=== PATIENT | male | born 1960 | race Caucasian/White ===

== ENCOUNTER 2016-11-05 11:19 | Emergency (ER) | payer OTHER ==
[2016-11-05] MEDS ORDERED: Sodium Chloride 0.9% 10 ML Syringe FLUSH PRN (11:26)
[2016-11-05] MEDS ORDERED: Nitroglycerin 2% Oint 1 GM UD Packet TOP ONE (11:34)
[2016-11-05] MEDS ORDERED: Aspirin 81 MG Tab.Chew PO ONE (11:34)
--- NOTE | 2016-11-05 12:38 | CR ---
Chest: Portable view of the chest was obtained. Comparison: Previous chest x-ray of 04/15/16. Heart size is normal. Tortuous thoracic aorta is seen. Lungs are clear. Bony structures are grossly intact. Impression: 1. Nothing acute is identified on portable chest x-ray. Diagnostic code #1
--- NOTE | 2016-11-05 13:04 | EDM.PDOC ---
ED HPI GENERAL MEDICAL PROBLEM - General Chief Complaint: Chest Pain Stated Complaint: CHEST PAIN Time Seen by Provider: 11/05/16 11:25 Source of Information: Reports: Patient, RN Notes Reviewed - History of Present Illness INITIAL COMMENTS - FREE TEXT/NARRATIVE: 55-year-old male comes in with left anterior chest tightness. It onset of this driving about an hour ago. And used to have some discomfort of the left anterior chest but not as severe as it was initially. The pain did initially radiate toward his left shoulder but is no longer doing that. He gan. had no pain to his neck or back. There's been no shortness of breath, nausea vomiting or diaphoresis. He doesn't have known history of hypertension and coronary artery disease. He has at least a couple of stents with the last stent placed about one year ago. Left Upper Chest Pain Score (Numeric/FACES): 5 - Related Data Allergies Allergy/AdvReac Type Severity Reaction Status Date / Time No Known Allergies Allergy Verified 11/05/16 11:28 Home Meds: Home Meds Omeprazole. 20 cap PO DAILY 01/08/14 [History] Aspirin [Low Dose Aspirin EC] 81 mg PO BEDTIME 01/23/16 [History] Clopidogrel [Plavix] 75 mg PO DAILY 01/23/16 [History] Metoprolol Tartrate 12.5 mg PO DAILY 01/23/16 [History] atorvaSTATin [Lipitor] 80 mg PO BEDTIME 01/23/16 [History] Past Medical History Cardiovascular History: Reports: CAD, High Cholesterol, [place] Gastrointestinal History: Reports: Colon Polyp, GERD, PUD Other Gastrointestinal History: inguinal hernia Genitourinary History: Reports: Renal Calculus Musculoskeletal History: Reports: Back Pain, Chronic Neurological History: Reports: Concussion - Past Surgical History HEENT Surgical History: Reports: Eye Surgery, Tonsillectomy Cardiovascular Surgical History: Reports: Coronary Artery Stent Neurological Surgical History: Reports: Lumbar Spine Musculoskeletal Surgical History: Reports: Arthroscopic Knee, Shoulder Surgery Social & Family History - Tobacco Use Smoking Status *Q: Never Smoker Second Hand Smoke Exposure: No - Caffeine Use Caffeine Use: Reports: Soda - Alcohol Use Days Per Week of Alcohol Use: 0 - Recreational Drug Use Recreational Drug Use: No - Living Situation & Occupation Living situation: Reports: , with Spouse Occupation: Employed ED ROS GENERAL - Review of Systems Review Of Systems: See Below Constitutional: Denies: Fever, Chills, Diaphoresis HEENT: Denies: Throat Pain, Vertigo Respiratory: Denies: Shortness of Breath, Pleuritic Chest Pain, Cough Cardiovascular: Reports: Chest Pain (No better). Denies: Lightheadedness, Palpitations GI/Abdominal: Denies: Abdominal Pain, Nausea, Vomiting Musculoskeletal: Reports: Shoulder Pain. Denies: Neck Pain, Arm Pain, Back Pain (Gone), Leg Pain Skin: Reports: No Symptoms Neurological: Denies: Dizziness ED EXAM, GENERAL - Physical Exam Exam: See Below General Appearance: Alert, No Apparent Distress Throat/Mouth: Normal Inspection, Normal Oropharynx Head: No: Facial Swelling Neck: Supple, Full Range of Motion, Other Respiratory/Chest: No Respiratory Distress (No JVD), Lungs Clear, Normal Breath Sounds, Chest Non-Tender Cardiovascular: Regular Rate, Rhythm GI/Abdominal: Soft, Non-Tender Extremities: Normal Inspection. No: Pedal Edema, Leg Pain Neurological: Alert, Oriented, No Motor/Sensory Deficits Skin Exam: Warm, Dry, Normal Color Course - Vital Signs Last Recorded V/S: Last Vital Signs Temp 98.7 F 11/05/16 11:24 Pulse 74 11/05/16 13:32 Resp 16 11/05/16 13:32 BP 138/89 11/05/16 13:32 Pulse Ox 95 11/05/16 13:32 - Orders/Labs/Meds Orders: Active Orders 24 hr Category Date Time Status EKG 12 Lead [EKG Documentation Completion] [RC] STAT Care 11/05/16 11:26 Active Peripheral IV Care [RC] . DIRECTED Care 11/05/16 11:27 Active Peripheral IV Insertion Adult [OM.PC] Stat Oth 11/05/16 11:27 Ordered Labs: Laboratory Tests 11/05/16 11/05/16 11/05/16 Range/Units 11:25 11:25 13:05 WBC 5.91 (4.23-9.07) K/mm3 RBC 4.88 (4.63-6.08) M/mm3 Hgb 15.0 (13.7-17.5) gm/L Hct 44.0 (40.1-51.0) % MCV 90.2 (79.0-92.2) fl MCH 30.7 (25.7-32.2) pg MCHC 34.1 (32.2-35.5) g/dl RDW Std Deviation 42.5 (35.1-43.9) fL Plt Count 240 (163-337) K/mm3 MPV 9.4 (9.4-12.3) fl Neut % (Auto) 54.7 (34.0-67.9) % Lymph % (Auto) 31.3 (21.8-53.1) % [place] % (Auto) 6.4 (5.3-12.2) % Eos % (Auto) 6.9 (0.8-7.0) Baso % (Auto) 0.5 (0.1-1.2) % Neut # (Auto) 3.23 (1.78-5.38) K/mm3 Lymph # (Auto) 1.85 (1.32-3.57) K/mm3 [place] # (Auto) 0.38 (0.30-0.82) K/mm3 Eos # (Auto) 0.41 (0.04-0.54) K/mm3 Baso # (Auto) 0.03 (0.01-0.08) K/mm3 Manual Slide Review Not Reportable Sodium 142 (136-145) mEq/L Potassium 4.2 (3.5-5.1) mEq/L Chloride 105 (98-107) mEq/L Carbon Dioxide 29 (21-32) mEq/L Anion Gap 12.2 (5-15) BUN 18 (7-18) mg/dL Creatinine 1.1 (0.7-1.3) mg/dL Est Cr Clr Drug Dosing 80.19 mL/min Estimated GFR (MDRD) > 60 (>60) mL/min BUN/Creatinine Ratio 16.4 (14-18) Glucose 194 H (74-106) mg/dL Calcium 9.1 (8.5-10.1) mg/dL Total Bilirubin 0.6 (0.2-1.0) mg/dL AST 29 (15-37) U/L ALT 45 (16-63) U/L Alkaline Phosphatase 112 (46-116) U/L Troponin I < 0.017 < 0.017 (0.00-0.056) ng/mL Total Protein 7.4 (6.4-8.2) g/dl Albumin 4.2 (3.4-5.0) g/dl Globulin 3.2 gm/dL Albumin/Globulin Ratio 1.3 (1-2) Meds: Medications Discontinued Medications Generic Name Dose Route Start Last Admin Trade Name Woodrow PRN Reason Stop Dose Admin Aspirin 324 mg 11/05/16 11:34 11/05/16 11:46 Aspirin PO 11/05/16 11:35 324 mg ONETIME ONE Administration Nitroglycerin 1 gm 11/05/16 11:34 11/05/16 11:46 Nitro-Bid 2% TOP 11/05/16 11:35 1 gm ONETIME ONE Administration Sodium Chloride 10 ml 11/05/16 11:26 11/05/16 11:32 Saline Flush FLUSH 10 ml ASDIRECTED PRN Administration Keep Vein Open - Re-Assessments/Exams Free Text/Narrative Re-Assessment/Exam: 11/05/16 15:36. Repeat troponin has come back normal. We did end up doing the repeat more quickly than I wanted but patient insisted that he had to leave, that he had to get to court, that he had "clients waiting" Discharge instructions as documented Departure - Departure Time of Disposition: 12:59 Disposition: Home, Self-Care 01 Condition: Fair Clinical Impression: Atypical chest pain Instructions: Nonspecific Chest Pain Referrals: Russell Mejia MD [Primary Care Provider] - Forms: ED Department Discharge Additional Instructions: Your EKG does not show acute heart stress or heart attack. Your initial troponin cardiac marker has come back normal. It can take 2 to 3 hours for that to become positive. Our plan was to wait until at least 2 hours to redraw , preferably 3 hours from the redraw. We are drawing that early and letting you sign out early per your request. Return to ED for further evaluation if you develop any further chest pain, unusual dizziness, difficulty breathing or other unexplained symptoms. Call your Kids Activities Coach to report the episode of discomfort you had today, possible follow up now, rather than wait for your November appointment. - My Orders Last 24 Hours: My Active Orders 11/05/16 11:26 EKG 12 Lead [EKG Documentation Completion] [RC] STAT 11/05/16 11:27 Peripheral IV Care [RC] . DIRECTED Peripheral IV Insertion Adult [OM.PC] Stat - Assessment/Plan Last 24 Hours: My Active Orders 11/05/16 11:26 EKG 12 Lead [EKG Documentation Completion] [RC] STAT 11/05/16 11:27 Peripheral IV Care [RC] . DIRECTED Peripheral IV Insertion Adult [OM.PC] Stat
[2016-11-05 13:34] VITALS: BP 138/89
== END 2016-11-05 13:32 | disposition home or self-care (01) ==
LOC: JD.ED 11:19
DX: R07.89 Other chest pain (principal); I25.10 Atherosclerotic heart disease of native coronary artery without angina pectoris; E78.00 Pure hypercholesterolemia, unspecified; I25.2 Old myocardial infarction; Z79.82 Long term (current) use of aspirin; Z79.899 Other long term (current) drug therapy; Z87.442 Personal history of urinary calculi; Z98.890 Other specified postprocedural states
CPT/HCPCS: 36415; 71010; 80053; 84484; 85025; 93005; 99285; A9270; J7050; 99284

== ENCOUNTER 2018-03-31 13:54 | Emergency (ER) | payer OTHER ==
[2018-03-31] MEDS ORDERED: Aspirin 81 MG Tab.Chew PO ONE (14:40)
[2018-03-31] MEDS ORDERED: Sodium Chloride 0.9% 10 ML Syringe FLUSH PRN (14:41)
--- NOTE | 2018-03-31 14:47 | EDM.PDOC ---
ED HPI GENERAL MEDICAL PROBLEM - General Chief Complaint: Chest Pain Stated Complaint: CHEST PAIN Time Seen by Provider: 03/31/18 14:41 Source of Information: Reports: Patient History Limitations: Reports: No Limitations - History of Present Illness INITIAL COMMENTS - FREE TEXT/NARRATIVE: 57-year-old male presents for evaluation and treatment of left-sided chest pain. Patient reports that the pain started last night. Reports playing basketball until about 8:00. When he arrived home he sat down and stated experiencing pain to the left side of his chest. He reports that momentarily went up into the left side of his jaw. No radiation to his left arm went to his left back. Today he went to work and while sitting as this became flushed. The reports contact his primary care provider who instructed him to come to the ER. No nausea or diaphoresis. Patient has a history of high cholesterol. Denies any history of diabetes or high blood pressure. Patient Had a stent placed to one his coronary arteries about 2 and half years ago. Reports at that time he was told he had blockage over 70% another artery but no intervention was done. 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 He does not recall his last stress test. Left Chest Pain Score (Numeric/FACES): 3 - Related Data Allergies Allergy/AdvReac Type Severity Reaction Status Date / Time No Known Allergies Allergy Verified 03/31/18 14:09 Home Meds: Home Meds Omeprazole. 20 cap PO DAILY 01/08/14 [History] Aspirin [Low Dose Aspirin EC] 81 mg PO BEDTIME 01/23/16 [History] Clopidogrel [Plavix] 75 mg PO DAILY 01/23/16 [History] Metoprolol Tartrate 12.5 mg PO DAILY 01/23/16 [History] atorvaSTATin [Lipitor] 80 mg PO BEDTIME 01/23/16 [History] Past Medical History Cardiovascular History: Reports: CAD, High Cholesterol, [place] Gastrointestinal History: Reports: Colon Polyp, GERD, PUD Other Gastrointestinal History: inguinal hernia Genitourinary History: Reports: Renal Calculus Musculoskeletal History: Reports: Back Pain, Chronic Neurological History: Reports: Concussion - Past Surgical History HEENT Surgical History: Reports: Eye Surgery, Tonsillectomy Cardiovascular Surgical History: Reports: Coronary Artery Stent Neurological Surgical History: Reports: Lumbar Spine Musculoskeletal Surgical History: Reports: Arthroscopic Knee, Shoulder Surgery Social & Family History - Caffeine Use Caffeine Use: Reports: Soda - Living Situation & Occupation Living situation: Reports: , with Spouse Occupation: Employed ED ROS GENERAL - Review of Systems Review Of Systems: See Below Constitutional: Reports: Other (reports feeling flushed around 1400). Denies: Diaphoresis Respiratory: Denies: Shortness of Breath Cardiovascular: Reports: Chest Pain (left anterior ) GI/Abdominal: Denies: Nausea, Vomiting ED EXAM, GENERAL - Physical Exam Exam: See Below Exam Limited By: No Limitations General Appearance: Alert, WD/WN, No Apparent Distress Respiratory/Chest: No Respiratory Distress, Lungs Clear, Normal Breath Sounds, Other (tenderness to palpation to the left anterior chest at the sternal border around rib 5 and 6) Cardiovascular: Normal Peripheral Pulses, Regular Rate, Rhythm, No Edema, No Murmur Neurological: Alert, Oriented, Normal Cognition Psychiatric: Normal Affect, Normal Mood Skin Exam: Warm, Dry, Normal Color EKG INTERPRETATION EKG Date: 03/31/18 Time: 14:01 Rhythm: NSR Rate (Beats/Min): 65 [place]: Normal P-Wave: Present QRS: Normal ST-T: Normal QT: Normal Comparison: No Change (from Oct 2016 EKG) EKG Interpretation Comments: NSR at 65 bpm. First degree AV block. No AE. no ischemic changes. Normal transition. No LAD/RAD. No LVH. NO IVCD. QTc within normal limits with a QTc of 411. Reviewed by myself and Dr. Nelson. Course - Vital Signs Last Recorded V/S: Last Vital Signs Temp 98.4 F 03/31/18 14:01 Pulse 64 03/31/18 17:17 Resp 16 03/31/18 17:17 BP 129/90 03/31/18 17:17 Pulse Ox 98 03/31/18 17:17 - Orders/Labs/Meds Orders: Active Orders 24 hr Category Date Time Status Cardiac Monitoring [RC] . DIRECTED Care 03/31/18 14:40 Active Peripheral IV Care [RC] . DIRECTED Care 03/31/18 14:41 Active Peripheral IV Insertion Adult [OM.PC] Routine Oth 03/31/18 14:41 Ordered Labs: Laboratory Tests 03/31/18 03/31/18 03/31/18 Range/Units 14:50 14:50 14:50 WBC 5.77 (4.23-9.07) K/mm3 RBC 5.02 (4.63-6.08) M/mm3 Hgb 15.2 (13.7-17.5) gm/L Hct 45.1 (40.1-51.0) % MCV 89.8 (79.0-92.2) fl MCH 30.3 (25.7-32.2) pg MCHC 33.7 (32.2-35.5) g/dl RDW Std Deviation 41.8 (35.1-43.9) fL Plt Count 266 (163-337) K/mm3 MPV 9.3 L (9.4-12.3) fl Neutrophils % (Manual) 49 (40-60) % Band Neutrophils % 0 (0-10) % Lymphocytes % (Manual) 41 H (20-40) % Atypical Lymphs % 0 % Monocytes % (Manual) 4 (2-10) % Eosinophils % (Manual) 4 (0.8-7.0) % Basophils % (Manual) 2 H (0.2-1.2) Platelet Estimate Adequate RBC Morph Comment Normal PT 11.7 (9.5-12.1) SECONDS INR 1.07 APTT 26 (24-31) SECONDS Sodium 140 (136-145) mEq/L Potassium 4.4 (3.5-5.1) mEq/L Chloride 106 (98-107) mEq/L Carbon Dioxide 27 (21-32) mEq/L Anion Gap 11.4 (5-15) BUN 14 (7-18) mg/dL Creatinine 0.9 (0.7-1.3) mg/dL Est Cr Clr Drug Dosing 95.76 mL/min Estimated GFR (MDRD) > 60 (>60) mL/min BUN/Creatinine Ratio 15.6 (14-18) Glucose 101 (74-106) mg/dL Calcium 9.3 (8.5-10.1) mg/dL Total Bilirubin 0.4 (0.2-1.0) mg/dL AST 33 (15-37) U/L ALT 53 (16-63) U/L Alkaline Phosphatase 96 (46-116) U/L CK-MB (CK-2) 1.4 (0-3.6) ng/ml Troponin I < 0.017 (0.00-0.056) ng/mL Total Protein 7.3 (6.4-8.2) g/dl Albumin 4.0 (3.4-5.0) g/dl Globulin 3.3 gm/dL Albumin/Globulin Ratio 1.2 (1-2) 03/31/18 Range/Units 16:56 WBC (4.23-9.07) K/mm3 RBC (4.63-6.08) M/mm3 Hgb (13.7-17.5) gm/L Hct (40.1-51.0) % MCV (79.0-92.2) fl MCH (25.7-32.2) pg MCHC (32.2-35.5) g/dl RDW Std Deviation (35.1-43.9) fL Plt Count (163-337) K/mm3 MPV (9.4-12.3) fl Neutrophils % (Manual) (40-60) % Band Neutrophils % (0-10) % Lymphocytes % (Manual) (20-40) % Atypical Lymphs % % Monocytes % (Manual) (2-10) % Eosinophils % (Manual) (0.8-7.0) % Basophils % (Manual) (0.2-1.2) Platelet Estimate RBC Morph Comment PT (9.5-12.1) SECONDS INR APTT (24-31) SECONDS Sodium (136-145) mEq/L Potassium (3.5-5.1) mEq/L Chloride (98-107) mEq/L Carbon Dioxide (21-32) mEq/L Anion Gap (5-15) BUN (7-18) mg/dL Creatinine (0.7-1.3) mg/dL Est Cr Clr Drug Dosing mL/min Estimated GFR (MDRD) (>60) mL/min BUN/Creatinine Ratio (14-18) Glucose (74-106) mg/dL Calcium (8.5-10.1) mg/dL Total Bilirubin (0.2-1.0) mg/dL AST (15-37) U/L ALT (16-63) U/L Alkaline Phosphatase (46-116) U/L CK-MB (CK-2) (0-3.6) ng/ml Troponin I < 0.017 (0.00-0.056) ng/mL Total Protein (6.4-8.2) g/dl Albumin (3.4-5.0) g/dl Globulin gm/dL Albumin/Globulin Ratio (1-2) Meds: Medications Discontinued Medications Generic Name Dose Route Start Last Admin Trade Name Woodrow PRN Reason Stop Dose Admin Aspirin 324 mg 03/31/18 14:40 03/31/18 14:44 Aspirin PO 03/31/18 14:41 324 mg ONETIME ONE Administration Sodium Chloride 10 ml 03/31/18 14:41 03/31/18 14:54 Saline Flush FLUSH 10 ml ASDIRECTED PRN Administration Keep Vein Open - Radiology Interpretation Free Text/Narrative:: Chest: Portable view of the chest was obtained. Comparison: Prior chest x-ray of 11/05/16. Heart size is slightly enlarged but accentuated from portable technique. Tortuous thoracic aorta is seen. Lungs are clear with no acute parenchymal change. Minimal scoliosis is noted within the spine. Impression: 1. Nothing acute is seen on portable chest x-ray. - Re-Assessments/Exams Free Text/Narrative Re-Assessment/Exam: 03/31/18 16:34 I reviewed the labs, ekg and imaging with the patient. He has been offered medication for the discomfort during his ED stay but declined. I feel this is likely chest wall in origin, however given his history Recommend repeat trop. Patient is agreeable to this but does not want to wait for results. I will call him if his repeat trop is positive but he wants to leave at this time. State she only lives 2 blocks away and will promptly return if trop is positive. Discharge instructions as documented. 03/31/18 17:50 Repeat trop is negative at <0.017 Departure - Departure Time of Disposition: 17:06 Disposition: Home, Self-Care 01 Condition: Fair Clinical Impression: Chest wall pain Instructions: Chest Wall Pain, [id number] Referrals: Russell Mejia MD [Primary Care Provider] - Forms: ED Department Discharge Additional Instructions: Follow-up with your PCP within 2 weeks for a recheck of your symptoms. May take OTC tylenol or motrin as needed for pain. May use ice or heat to the sore area for additional pain relief. Please return to the ER should your symptoms change or worsen. - My Orders Last 24 Hours: My Active Orders 03/31/18 14:40 Cardiac Monitoring [RC] . DIRECTED 03/31/18 14:41 Peripheral IV Care [RC] . DIRECTED Peripheral IV Insertion Adult [OM.PC] Routine - Assessment/Plan Last 24 Hours: My Active Orders 03/31/18 14:40 Cardiac Monitoring [RC] . DIRECTED 03/31/18 14:41 Peripheral IV Care [RC] . DIRECTED Peripheral IV Insertion Adult [OM.PC] Routine
--- NOTE | 2018-03-31 15:04 | CR ---
Chest: Portable view of the chest was obtained. Comparison: Prior chest x-ray of 11/05/16. Heart size is slightly enlarged but accentuated from portable technique. Tortuous thoracic aorta is seen. Lungs are clear with no acute parenchymal change. Minimal scoliosis is noted within the spine. Impression: 1. Nothing acute is seen on portable chest x-ray. Diagnostic code #2
[2018-03-31 17:18] VITALS: BP 129/90
== END 2018-03-31 17:15 | disposition home or self-care (01) ==
LOC: JD.ED 13:54
DX: R07.89 Other chest pain (principal); E78.00 Pure hypercholesterolemia, unspecified; I25.10 Atherosclerotic heart disease of native coronary artery without angina pectoris; I25.2 Old myocardial infarction; Z79.899 Other long term (current) drug therapy
CPT/HCPCS: 36415; 71045; 80053; 82553; 84484; 85007; 85027; 85610; 85730; 99285; A9270

== ENCOUNTER 2019-02-03 10:38 | Day surgery (SDC) | payer OTHER ==
[~2019-02-03 10:38] MED LIST: Dexamethasone 4 MG/ML 5 ML MDV ONE; Ketorolac 15 MG/ML SDV ONE; Lactated Ringers 1,000 ML IV SCH; Lactated Ringers 1,000 ML ONE; Lidocaine 1% 4 ML ONE; Lidocaine 1%/Sod Bicarbonate in NS 8.4% 1 ML Syringe IDERM PRN; Midazolam 1 MG/ML 2 ML SDV ONE; Ondansetron 4 MG/2 ML SDV ONE; Propofol 200 MG/20 ML SDV ONE; Sodium Chloride 0.9% 10 ML Syringe FLUSH PRN; ceFAZolin 1 GM Vial ONE; fentaNYL 250 MCG/5 ML SDV ONE
[2019-02-03] MEDS ORDERED: Bupivacaine 0.5%/EPINEPHrine 1:200,000 50 ML MDV ONE (11:06)
[2019-02-03] MEDS ORDERED: ePHEDrine/Normal Saline 25 MG/5 ML Syringe ONE (12:01)
[2019-02-03] MEDS ORDERED: HYDROmorphone 0.5 MG/0.5 ML Syringe IVPUSH PRN (12:11)
[2019-02-03] MEDS ORDERED: Ondansetron 4 MG/2 ML SDV IVPUSH PRN (12:11)
[2019-02-03] MEDS ORDERED: fentaNYL 100 MCG/2 ML SDV IVPUSH PRN (12:11)
--- NOTE | 2019-02-03 12:25 | PCM.PREANE ---
Preanesthetic Assessment - Anesthesia/Transfusion/Family Hx Anesthesia History: Prior Anesthesia Without Reaction Family History of Anesthesia Reaction: No - Review of Systems General: No Symptoms Pulmonary: No Symptoms Cardiovascular: No Symptoms, Other (Vigorous activity. Greater than or equal to 6 METs. Cardiac Stent in 2016 x1 no chest pain since stent placement. Approved for surgery per cardiology without further testing requirements. ) Gastrointestinal: No Symptoms Neurological: No Symptoms Other: Reports: None - Physical Assessment NPO Status Date: 02/03/19 NPO Status Time: 01:00 Vital Signs: Last Vital Signs Temp 36.8 C 02/03/19 11:00 Pulse 67 02/03/19 11:00 Resp 16 02/03/19 11:00 BP 146/101 H 02/03/19 11:00 Pulse Ox 98 02/03/19 11:00 Height: 1.78 m Weight: 90.718 kg - Lab Values: Laboratory Last Values WBC 6.51 K/mm3 (4.23-9.07) 02/03/19 10:10 RBC 4.89 M/mm3 (4.63-6.08) 02/03/19 10:10 Hgb 14.9 gm/dl (13.7-17.5) 02/03/19 10:10 Hct 44.3 % (40.1-51.0) 02/03/19 10:10 MCV 90.6 fl (79.0-92.2) 02/03/19 10:10 MCH 30.5 pg (25.7-32.2) 02/03/19 10:10 MCHC 33.6 g/dl (32.2-35.5) 02/03/19 10:10 RDW Std Deviation 41.8 fL (35.1-43.9) 02/03/19 10:10 Plt Count 253 K/mm3 (163-337) 02/03/19 10:10 MPV 8.7 fl (9.4-12.3) L 02/03/19 10:10 Neut % (Auto) 61.4 % (34.0-67.9) 02/03/19 10:10 Lymph % (Auto) 27.3 % (21.8-53.1) 02/03/19 10:10 [place] % (Auto) 9.4 % (5.3-12.2) 02/03/19 10:10 Eos % (Auto) 1.4 (0.8-7.0) 02/03/19 10:10 Baso % (Auto) 0.3 % (0.1-1.2) 02/03/19 10:10 Neut # (Auto) 4.00 K/mm3 (1.78-5.38) 02/03/19 10:10 Lymph # (Auto) 1.78 K/mm3 (1.32-3.57) 02/03/19 10:10 [place] # (Auto) 0.61 K/mm3 (0.30-0.82) 02/03/19 10:10 Eos # (Auto) 0.09 K/mm3 (0.04-0.54) 02/03/19 10:10 Baso # (Auto) 0.02 K/mm3 (0.01-0.08) 02/03/19 10:10 Sodium 137 mEq/L (136-145) 02/03/19 10:10 Potassium 3.6 mEq/L (3.5-5.1) 02/03/19 10:10 Chloride 101 mEq/L (98-107) 02/03/19 10:10 Carbon Dioxide 26 mEq/L (21-32) 02/03/19 10:10 Anion Gap 13.6 (5-15) 02/03/19 10:10 BUN 11 mg/dL (7-18) 02/03/19 10:10 Creatinine 1.1 mg/dL (0.7-1.3) 02/03/19 10:10 Est Cr Clr Drug Dosing 77.42 mL/min 02/03/19 10:10 Estimated GFR (MDRD) > 60 mL/min (>60) 02/03/19 10:10 BUN/Creatinine Ratio 10.0 (14-18) L 02/03/19 10:10 Glucose 84 mg/dL (74-106) 02/03/19 10:10 Calcium 9.3 mg/dL (8.5-10.1) 02/03/19 10:10 - Allergies Allergies/Adverse Reactions: Allergies Allergy/AdvReac Type Severity Reaction Status Date / Time No Known Allergies Allergy Verified 02/02/19 13:38 PreAnesthesia Questionnaire Cardiovascular History: Reports: High Cholesterol, [place], Stents Respiratory History: Reports: None Gastrointestinal History: Reports: Colon Polyp, GERD, Other (See Below) Other Gastrointestinal History: inguinal hernia Genitourinary History: Reports: Renal Calculus 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 Musculoskeletal History: Reports: Back Pain, Chronic Neurological History: Reports: Concussion Psychiatric History: Reports: None Endocrine/Metabolic History: Reports: None Hematologic History: Reports: None Immunologic History: Reports: None Oncologic (Cancer) History: Reports: None Dermatologic History: Reports: None - Past Surgical History Head Surgeries/Procedures: Reports: None HEENT Surgical History: Reports: LASIK, Tonsillectomy Cardiovascular Surgical History: Reports: None Respiratory Surgical History: Reports: None GI Surgical History: Reports: Colonoscopy Female Surgical History: Reports: None Male Surgical History: Reports: None Endocrine Surgical History: Reports: None Neurological Surgical History: Reports: Lumbar Spine Musculoskeletal Surgical History: Reports: Arthroscopic Knee, Shoulder Surgery Oncologic Surgical History: Reports: None Dermatological Surgical History: Reports: None - SUBSTANCE USE Smoking Status *Q: Never Smoker - HOME MEDS Home Medications: Home Meds Aspirin [Low Dose Aspirin EC] 81 mg PO BEDTIME 01/23/16 [History] atorvaSTATin [Lipitor] 80 mg PO BEDTIME 01/23/16 [History] Omeprazole 20 mg PO DAILY 02/02/19 [History] - CURRENT (IN HOUSE) MEDS Current Meds: Current Medications Fentanyl (Sublimaze) 50 mcg IVPUSH Q5M PRN PRN Reason: Pain Hydromorphone HCl (Dilaudid) 0.5 mg IVPUSH Q10M PRN PRN Reason: Pain (severe 7-10) Lactated Ringer's (Ringers, Lactated) 1,000 mls @ 125 mls/hr IV ASDIRECTED RUTHANN Stop: 02/03/19 23:00 Last Admin: 02/03/19 11:05 Dose: 125 mls/hr Influenza Virus Vaccine (Pharmacy To Dose - Influenza Vaccine) 0 each IM ONETIME RUTHANN Stop: 02/03/19 16:00 Influenza Virus Vaccine (Fluzone Quad [id number] Syringe) 60 mcg IM .ONCE ONE Stop: 02/03/19 13:46 Lidocaine/Sodium Bicarbonate (Buffered Lidocaine 1% In Ns 8.4%) 0.25 ml IDERM ONETIME PRN PRN Reason: Prior to IV Start Stop: 02/03/19 18:00 Last Admin: 02/03/19 11:05 Dose: 0.25 ml Ondansetron HCl (Zofran) 4 mg IVPUSH ONETIME PRN PRN Reason: Nausea/Vomiting Sodium Chloride (Saline Flush) 10 ml FLUSH ASDIRECTED PRN PRN Reason: Keep Vein Open Stop: 02/03/19 18:00 Discontinued Medications Bupivacaine HCl/Epinephrine Bitart (Marcaine 0.5%/Epinephrine 1:200,000) Confirm Administered Dose 50 ml .ROUTE .STK-MED ONE Stop: 02/03/19 11:07 Cefazolin Sodium (Ancef) Confirm Administered Dose 2 gm .ROUTE .STK-MED ONE Stop: 02/03/19 10:11 Dexamethasone (Dexamethasone) Confirm Administered Dose 20 mg .ROUTE .STK-MED ONE Stop: 02/03/19 10:12 Ephedrine Sulfate (Ephedrine In Ns) Confirm Administered Dose 25 mg .ROUTE .STK- MED ONE Stop: 02/03/19 12:02 Fentanyl (Sublimaze) Confirm Administered Dose 250 mcg .ROUTE .STK-MED ONE Stop: 02/03/19 10:11 Lidocaine HCl (Xylocaine-Mpf 1%) Confirm Administered Dose 4 mls @ as directed .ROUTE .STK-MED ONE Stop: 02/03/19 10:11 Lactated Ringer's (Ringers, Lactated) Confirm Administered Dose 1,000 mls @ as directed .ROUTE .STK-MED ONE Stop: 02/03/19 10:11 Ketorolac Tromethamine (Toradol) Confirm Administered Dose 15 mg .ROUTE .STK- MED ONE Stop: 02/03/19 10:12 Midazolam HCl (Versed 1 Mg/Ml) Confirm Administered Dose 2 mg .ROUTE .STK-MED ONE Stop: 02/03/19 10:11 Ondansetron HCl (Zofran) Confirm Administered Dose 4 mg .ROUTE .STK-MED ONE Stop: 02/03/19 10:11 Propofol (Diprivan 20 Ml) Confirm Administered Dose 400 mg .ROUTE .STK-MED ONE Stop: 02/03/19 10:11
[2019-02-03] MEDS ORDERED: Lactated Ringers 1,000 ML ONE (13:02)
[2019-02-03] MEDS ORDERED: Neostigmine Methylsulfate 1 MG/ML 5 ML Syringe ONE (13:04)
[2019-02-03] MEDS ORDERED: Ketorolac 15 MG/ML SDV ONE (13:36)
[2019-02-03] MEDS ORDERED: FLU Vacc QS2019-20(6MOS+)/PF 60 MCG/0.5 ML SYRINGE IM ONE (13:45)
--- NOTE | 2019-02-03 14:08 | PCM.POSTAN ---
POST ANESTHESIA ASSESSMENT - MENTAL STATUS Mental Status: Alert, Oriented - VITAL SIGNS Vital Signs: Last Vital Signs 1401 127/69 66 11 94% 99.7F - RESPIRATORY Respiratory Status: Respiratory Rate WNL, Airway Patent, O2 Saturation Stable, Supplemental Oxygen - CARDIOVASCULAR CV Status: Pulse Rate WNL, Blood Pressure Stable - GASTROINTESTINAL GI Status: No Symptoms - PAIN Pain Score: 0 - POST OP HYDRATION Hydration Status: Adequate & Stable
[2019-02-03] MEDS ORDERED: FLU Vacc QS2019-20(6MOS+)/PF 60 MCG/0.5 ML SYRINGE ONE (14:39)
--- NOTE | 2019-02-03 15:51 | PCM48HPAN ---
Post Anesthesia Note - EVALUATION WITHIN 48HRS OF ANESTHETIC Vital Signs in Normal Range: Yes Patient Participated in Evaluation: Yes Respiratory Function Stable: Yes Airway Patent: Yes Cardiovascular Function Stable: Yes Hydration Status Stable: Yes Pain Control Satisfactory: Yes Nausea and Vomiting Control Satisfactory: Yes Mental Status Recovered: Yes Vital Signs: Last Vital Signs Temp 37.2 C 02/03/19 15:00 Pulse 61 02/03/19 15:00 Resp 15 02/03/19 15:00 BP 132/88 02/03/19 15:00 Pulse Ox 93 L 02/03/19 15:00 - COMMENTS/OBSERVATIONS Free Text/Narrative:: no anesthesia complications noted
--- NOTE | 2019-02-03 16:03 | PCM.PRNOTE ---
- Free Text/Narrative Note: Date: 02/03/2019 Surgeon: Дмитрий Bess MD Procedure: right inguinal hernia repair, screening colonoscopy Findings: direct right inguinal hernia. An erythematous mucosal streak was noted in the sigmoid which was likely from scope trauma, but mucosa appeared different enough that a sample biopsy was obtained. Detailed report: The patient was taken to the operating room and placed supine on the operating table. General endotracheal anesthesia was administered. The right abdomen and groin was prepped with ChloraPrep and draped sterilely. Amount was performed. 20 cc of half percent Marcaine with epinephrine was injected intradermally along the projection of the inguinal ligament; from the inferior aspect of the ASIS to the right pubic tubercle. A knife was used to make an 8 cm incision along this projection, and cautery was used to divide subcutaneous tissue, working down towards the external oblique aponeurosis. Self-retaining retractors were placed to aid with exposure of the external oblique. The external ring was palpable. An additional 10 cc of local anesthetic was injected just deep to the external oblique Neurosis into the inguinal canal. A 15 blade was used to make a stab incision in line with the aponeurotic fibers at the midportion of the inguinal canal. Metzenbaum scissors were placed through this incision and used to bluntly separate the underlying spermatic cord from the external oblique aponeurosis. The aponeurosis was then opened in line with the inguinal canal using the scissors, exposing the spermatic cord. The leaflets of the aponeurosis were grasped, and blunt dissection with the peanut was used to free the spermatic cord from its attachments. During dissection, it was apparent that there was a large direct inguinal hernia, with complete destruction of the inguinal floor and no obvious transversalis fascia. A Wolfgang drain was placed around the spermatic cord near Be's ligament. Cremasteric fibers were from the underside of the spermatic cord, freeing it up towards the internal inguinal ring. With careful dissection, no indirect hernia sac was identified. The direct hernia reduced, a piece of pro- can handler polypropylene mesh was cut to size and shape, measuring approximately 7-1/ 2 x 15 cm. Inferomedial aspect of the mesh was secured with a Prolene stitch at the insertion of the rectus muscle to the pubic tubercle, ensuring good 2 cm overlap medially and inferiorly. The inferolateral aspect of the mesh was stitched to the inguinal ligament with short running Prolene suture. A slit was cut in the superior lateral aspect of the mesh, allowing passage of the spermatic cord. The limbs of the mesh were brought together superiorly, re- creating the internal ring. The mesh laid flat, and the medial stitch was placed at the internal oblique aponeurotic fibers to help hold the mesh in place. External oblique was closed with interrupted Vicryl suture. Jolie's fascia was closed with interrupted suture, and the skin was closed with running subcuticular Vicryl stitch. The wound was dressed with Dermabond. At the conclusion of the case, the right testicle was felt to be in proper position in the scrotum. The patient tolerated the procedure well, and he was then repositioned for the second portion of the procedure; screening colonoscopy. She was placed in left lateral decub and visual inspection of the anus revealed no gross abnormality. Digital rectal exam was unremarkable. The colonoscope was advanced transanally all the way to the cecum. Prep was good. On slow retraction of the colonoscope, mucosal surfaces were inspected carefully. There was minor scattered diverticular disease in the distal colon. No polyps were identified. In the distal portion of the sigmoid, there was an erythematous linear streak that seems most consistent with trauma from the scope. However, erring on the side of caution, a small sample biopsy was obtained. On retroflexion in the rectum, no hemorrhoidal disease was identified. The scope was withdrawn, the patient tolerated the procedure well. Дмитрий Bess MD General Surgery
[2019-02-03 16:45] VITALS: BP 129/80; PULSE 66
== END 2019-02-03 15:50 | disposition home or self-care (01) ==
LOC: JD.SDS 10:38
PROVIDERS: ATTEND Surgery
DX: Z12.11 Encounter for screening for malignant neoplasm of colon (principal); K40.90 Unilateral inguinal hernia, without obstruction or gangrene, not specified as recurrent; K21.9 Gastro-esophageal reflux disease without esophagitis; E78.00 Pure hypercholesterolemia, unspecified; Z79.899 Other long term (current) drug therapy; Z79.82 Long term (current) use of aspirin
CPT/HCPCS: 36415; 45378; 49505; 80048; 85025; 90471; 90686; J0690; J1100; J1885; J2001; J2250; J2405; J2704; J2710; J3010; J3490; J7050; J7120; 00830; C1781; G0008

== ENCOUNTER 2019-05-17 01:53 | Emergency (ER) | payer OTHER ==
[2019-05-17] MEDS: Nitroglycerin 0.4 MG Tab.SL SL PRN ×2 (03:40→05:00)
[2019-05-17] MEDS ORDERED: Alum Hydrox/Mag Hydrox/Simeth 30 ML, Lidocaine 2% 15 ML PO ONE ×2 (03:50)
--- NOTE | 2019-05-17 03:59 | EDM.PDOC ---
ED HPI GENERAL MEDICAL PROBLEM - General Chief Complaint: Chest Pain Stated Complaint: CHEST PAINS Time Seen by Provider: 05/17/19 03:24 Source of Information: Reports: Patient History Limitations: Reports: No Limitations - History of Present Illness INITIAL COMMENTS - FREE TEXT/NARRATIVE: This is a 58-year-old male. He has a history of a stent x1 placed in 2016. He also has a history of esophageal reflux though that has not been bothering him for several years. Apparently today he went out with a body and drank some beers and he noted he was having some indigestion and reflux symptoms. He did take a antacid that seemed to help and he went to sleep. He awoke with midsternal pressure and pressure in his left arm and some nausea but no vomiting. There is no shortness of breath and no diaphoresis. He comes to the ER for evaluation. He denies any other acute symptoms at this time. Mid-Sternal Chest Pain Score (Numeric/FACES): 4 - Related Data Allergies Allergy/AdvReac Type Severity Reaction Status Date / Time No Known Allergies Allergy Verified 02/02/19 13:38 Home Meds: Home Meds Aspirin [Low Dose Aspirin EC] 324 mg PO BEDTIME 01/23/16 [History] atorvaSTATin [Lipitor] 80 mg PO BEDTIME 01/23/16 [History] Omeprazole 20 mg PO DAILY 02/02/19 [History] Past Medical History Cardiovascular History: Reports: High Cholesterol, CT, Stents Respiratory History: Reports: None Gastrointestinal History: Reports: Colon Polyp, GERD, Other (See Below) Other Gastrointestinal History: inguinal hernia Genitourinary History: Reports: Renal Calculus [employer] History: Reports: None Musculoskeletal History: Reports: Back Pain, Chronic Neurological History: Reports: Concussion Psychiatric History: Reports: None Endocrine/Metabolic History: Reports: None Hematologic History: Reports: None Immunologic History: Reports: None Oncologic (Cancer) History: Reports: None Dermatologic History: Reports: None - Past Surgical History Head Surgeries/Procedures: Reports: None HEENT Surgical History: Reports: LASIK, Tonsillectomy Cardiovascular Surgical History: Reports: None, Coronary Artery Stent Respiratory Surgical History: Reports: None GI Surgical History: Reports: Colonoscopy, Polypectomy Male Surgical History: Reports: None Endocrine Surgical History: Reports: None Neurological Surgical History: Reports: Lumbar Spine Musculoskeletal Surgical History: Reports: Arthroscopic Knee, Shoulder Surgery Oncologic Surgical History: Reports: None Dermatological Surgical History: Reports: None Social & Family History - Tobacco Use Smoking Status *Q: Never Smoker - Caffeine Use Caffeine Use: Reports: Soda - Recreational Drug Use Recreational Drug Use: No - Living Situation & Occupation Living situation: Reports: , with Spouse Occupation: Employed ED ROS GENERAL - Review of Systems Review Of Systems: See Below Constitutional: Denies: Fever, Chills HEENT: Reports: No Symptoms Respiratory: Denies: Shortness of Breath, Wheezing, Cough Cardiovascular: Reports: Chest Pain. Denies: Edema Endocrine: Reports: No Symptoms GI/Abdominal: Reports: Nausea. Denies: Vomiting : Reports: No Symptoms Musculoskeletal: Reports: No Symptoms Skin: Reports: No Symptoms Neurological: Reports: No Symptoms Psychiatric: Reports: No Symptoms Hematologic/Lymphatic: Reports: No Symptoms ED EXAM, GENERAL - Physical Exam Exam: See Below Exam Limited By: No Limitations General Appearance: Alert, WD/WN, No Apparent Distress Eye Exam: Bilateral Eye: Normal Inspection Ears: Normal External Exam Nose: Normal Inspection Throat/Mouth: Normal Inspection, Normal Lips, Normal Voice, No Airway Compromise Head: Normocephalic Neck: Supple Respiratory/Chest: No Respiratory Distress, Lungs Clear, Normal Breath Sounds Cardiovascular: Regular Rate, Rhythm, No Murmur GI/Abdominal: Soft, Non-Tender Back Exam: Full Range of Motion Extremities: Normal Inspection, Normal Range of Motion Neurological: Alert, Oriented Psychiatric: Normal Affect, Normal Mood Skin Exam: Warm, Dry EKG INTERPRETATION EKG Date: 05/17/19 Time: 01:55 EKG Interpretation Comments: EKG shows a sinus rhythm rate of 83, there is no acute ST or T wave changes or ST elevation, there is no acute ischemia noted Course - Vital Signs Last Recorded V/S: Last Vital Signs Temp 98.8 F 05/17/19 01:59 Pulse 83 05/17/19 01:59 Resp 20 05/17/19 01:59 BP 110/72 05/17/19 05:00 Pulse Ox 94 L 05/17/19 01:59 - Orders/Labs/Meds Orders: Active Orders 24 hr Category Date Time Status EKG Documentation Completion [RC] URGENT Care 05/17/19 03:06 Active Chest 1V Frontal [CR] Stat Exams 05/17/19 03:17 Taken Nitroglycerin [Nitrostat] Med 05/17/19 03:34 Active 0.4 mg SL Q5M PRN Medication Orders Nitroglycerin (Nitrostat) 0.4 mg SL Q5M PRN PRN Reason: Chest Pain Last Admin: 05/17/19 05:00 Dose: 0.4 mg Admin: 05/17/19 03:40 Dose: 0.4 mg Labs: Laboratory Tests 05/17/19 05/17/19 05/17/19 Range/Units 03:15 03:15 05:21 WBC 6.82 (4.23-9.07) K/mm3 RBC 4.74 (4.63-6.08) M/mm3 Hgb 14.3 (13.7-17.5) gm/dl Hct 41.8 (40.1-51.0) % MCV 88.2 (79.0-92.2) fl MCH 30.2 (25.7-32.2) pg MCHC 34.2 (32.2-35.5) g/dl RDW Std Deviation 42.9 (35.1-43.9) fL Plt Count 245 (163-337) K/mm3 MPV 9.1 L (9.4-12.3) fl Neut % (Auto) 58.0 (34.0-67.9) % Lymph % (Auto) 30.5 (21.8-53.1) % [place] % (Auto) 7.2 (5.3-12.2) % Eos % (Auto) 3.7 (0.8-7.0) Baso % (Auto) 0.6 (0.1-1.2) % Neut # (Auto) 3.96 (1.78-5.38) K/mm3 Lymph # (Auto) 2.08 (1.32-3.57) K/mm3 [place] # (Auto) 0.49 (0.30-0.82) K/mm3 Eos # (Auto) 0.25 (0.04-0.54) K/mm3 Baso # (Auto) 0.04 (0.01-0.08) K/mm3 Sodium 147 H D (136-145) mEq/L Potassium 3.9 (3.5-5.1) mEq/L Chloride 109 H (98-107) mEq/L Carbon Dioxide 23 (21-32) mEq/L Anion Gap 18.9 H (5-15) BUN 13 (7-18) mg/dL Creatinine 0.9 (0.7-1.3) mg/dL Est Cr Clr Drug Dosing 94.63 mL/min Estimated GFR (MDRD) > 60 (>60) mL/min BUN/Creatinine Ratio 14.4 (14-18) Glucose 135 H (74-106) mg/dL Calcium 8.9 (8.5-10.1) mg/dL Total Bilirubin 0.5 (0.2-1.0) mg/dL AST 26 (15-37) U/L ALT 41 (16-63) U/L Alkaline Phosphatase 78 (46-116) U/L Troponin I < 0.017 < 0.017 (0.00-0.056) ng/mL Total Protein 7.0 (6.4-8.2) g/dl Albumin 4.0 (3.4-5.0) g/dl Globulin 3.0 gm/dL Albumin/Globulin Ratio 1.3 (1-2) Meds: Medications Generic Name Dose Route Start Last Admin Trade Name Freq PRN Reason Stop Dose Admin Nitroglycerin 0.4 mg 05/17/19 03:34 05/17/19 05:00 Nitrostat SL 0.4 mg Q5M PRN Administration Chest Pain Discontinued Medications Generic Name Dose Route Start Last Admin Trade Name Freq PRN Reason Stop Dose Admin Al Hydroxide/Mg Hydroxide 30 0 ml 05/17/19 03:50 05/17/19 03:55 ml/ Lidocaine HCl 15 ml PO 05/17/19 03:51 45 ml ONETIME ONE Administration - Radiology Interpretation Free Text/Narrative:: Chest x-ray does not show any acute changes. - Re-Assessments/Exams Free Text/Narrative Re-Assessment/Exam: 05/17/19 03:58 Gave the patient a single sublingual nitroglycerin and when we went back to check he states that the nitroglycerin seemed to make his pressure in his chest worse not better. we will try GI cocktail and see if that helps. 05/17/19 06:58 I spoke to the patient regarding a second troponin that was absolutely normal. I do not think that the pressure he is having at this time can be directly related to his cardiac status however I encouraged him to follow-up with his family doctor and have a stress test. In the meantime he encouraged him not to do any strenuous activity and take it easy until he can see his family doctor. 05/17/19 07:00 Please note that when he gave him a nitroglycerin he says it really did not make any difference and so I gave him a GI cocktail and that did not really make any difference. That is why we did a second troponin that was absolutely normal so I am not certain if this is cardiac related or more esophageal related. That is why encouraged him to follow-up with his family doctor and have a cardiac stress test since he does have a history of a single stent back in 2016. Departure - Departure Time of Disposition: 06:59 Disposition: Home, Self-Care 01 Condition: Good Clinical Impression: Cardiovascular disease Chest pain Qualifiers: Chest pain type: other chest pain Qualified Code(s): R07.89 - Other chest pain ; R07.8 - Other chest pain Instructions: Angina Pectoris, [id number] Referrals: Russell Mejia MD [Primary Care Provider] - Forms: ED Department Discharge Additional Instructions: Do not do any strenuous activity lifting or running just keep it sedentary until you can follow-up with your family doctor for reevaluation. If there is marked increase in the left chest pressure or the pain in the left arm especially with shortness of breath or sweating you need to return to the ER immediately, once you follow-up with your doctor consider getting a cardiac stress test valuation of your cardiac status since you do have a history of a single stent back in 2016. Sepsis Event Note - Evaluation Sepsis Screening Result: No Definite Risk - Focused Exam Vital Signs: Vital Signs Temp Pulse Resp BP BP Pulse Ox 05/17/19 05:00 110/72 05/17/19 03:40 124/76 05/17/19 01:59 98.8 F 83 20 124/88 94 L Date Exam was Performed: 05/17/19 Time Exam was Performed: 06:58 - My Orders Last 24 Hours: My Active Orders 05/17/19 03:06 EKG Documentation Completion [RC] URGENT 05/17/19 03:17 Chest 1V Frontal [CR] Stat 05/17/19 03:34 Nitroglycerin [Nitrostat] 0.4 mg SL Q5M PRN - Assessment/Plan Last 24 Hours: My Active Orders 05/17/19 03:06 EKG Documentation Completion [RC] URGENT 05/17/19 03:17 Chest 1V Frontal [CR] Stat 05/17/19 03:34 Nitroglycerin [Nitrostat] 0.4 mg SL Q5M PRN
[2019-05-17 07:31] VITALS: BP 120/80; PULSE 69
--- NOTE | 2019-05-17 13:52 | CR ---
Chest: Portable view of the chest was obtained. Comparison: Prior chest x-ray of 03/31/18. Heart size is normal. Tortuous thoracic aorta is seen. Lungs are clear with no acute parenchymal change. Bony structures are grossly intact. Impression: 1. Nothing acute is appreciated on portable chest x-ray. Diagnostic code #1 This report was dictated in [place] Standard Time
== END 2019-05-17 07:31 | disposition home or self-care (01) ==
LOC: JD.ED 01:53
DX: I67.9 Cerebrovascular disease, unspecified (principal); E78.00 Pure hypercholesterolemia, unspecified; I25.2 Old myocardial infarction; K21.9 Gastro-esophageal reflux disease without esophagitis; Z79.82 Long term (current) use of aspirin; Z79.899 Other long term (current) drug therapy
CPT/HCPCS: 36415; 71045; 80053; 84484; 85025; 93005; 99285; A9270; 93010; 99284

== ENCOUNTER 2021-04-25 14:06 | Emergency (ER) | payer OTHER ==
[2021-04-25 14:14] VITALS: BP 149/93; PULSE 67
[2021-04-25] MEDS: Aspirin 81 MG Tab.Chew PO ONE (14:49)
[2021-04-25] MEDS: Sodium Chloride 0.9% 10 ML Syringe FLUSH PRN (14:50)
[2021-04-25] MEDS: Sodium Chloride 0.9% 10 ML Syringe FLUSH ONE (17:01)
[2021-04-25] MEDS: Iopamidol 755 Mg/ML 100 ML Bottle IVPUSH ONE (17:01)
[2021-04-25] MEDS: Sodium Chloride 0.9% 100 ML IV SCH (17:01)
== END 2021-04-25 18:20 | disposition home or self-care (01) ==
LOC: JD.ED 14:06
DX: R07.89 Other chest pain (principal); E78.00 Pure hypercholesterolemia, unspecified; K21.9 Gastro-esophageal reflux disease without esophagitis; E66.9 Obesity, unspecified; Z68.30 Body mass index [BMI] 30.0-30.9, adult; Z79.82 Long term (current) use of aspirin; Z79.899 Other long term (current) drug therapy
CPT/HCPCS: 36415; 71045; 71275; 80053; 83735; 84484; 85025; 85379; 85610; 93005; 99285; A9270; Q9967

== ENCOUNTER 2022-04-13 21:25 | Emergency (ER) | payer OTHER ==
[2022-04-13] MEDS ORDERED: Sodium Chloride 0.9% 10 ML Syringe FLUSH PRN (21:49)
[2022-04-13] MEDS ORDERED: Nitroglycerin 2% Oint 1 GM UD Packet TOP ONE (21:57)
[2022-04-13] MEDS ORDERED: Aspirin 81 MG Tab.Chew PO ONE (21:57)
[2022-04-14 00:16] VITALS: BP 141/95; PULSE 74
== END 2022-04-14 00:31 | disposition home or self-care (01) ==
LOC: JD.ED 21:25
DX: R07.89 Other chest pain (principal); E78.00 Pure hypercholesterolemia, unspecified; I25.2 Old myocardial infarction; K21.9 Gastro-esophageal reflux disease without esophagitis; E66.9 Obesity, unspecified; Z68.35 Body mass index [BMI] 35.0-35.9, adult; Z79.82 Long term (current) use of aspirin; Z79.899 Other long term (current) drug therapy
CPT/HCPCS: 36415; 71045; 80053; 84484; 85025; 93005; 99285; A9270; J3490; 93010; 99284

== ENCOUNTER 2024-06-25 10:06 | Emergency (ER) | payer OTHER ==
[2024-06-25] MEDS ORDERED: Sodium Chloride 0.9% 10 ML Syringe FLUSH PRN (10:21)
[2024-06-25] MEDS: Aspirin 81 MG Tab.Chew PO ONE (10:25)
[2024-06-25 10:34] LABS: BASOPHILS ABSOLUTE AUTO 0.1 K/mm3 (0.0-0.2); BASOPHILS PERCENT AUTO 1.3 % (0.0-1.0); EOSINOPHILS ABSOLUTE AUTO 0.3 K/mm3 (0.0-0.4); EOSINOPHILS PERCENT AUTO 5.4 % (0.0-6.0); HEMATOCRIT 44.6 % (42.0-52.0); HEMOGLOBIN 14.7 gm/dl (14.0-18.0); IMMATURE GRAN ABSOLUTE AUTO 0.02 K/mm3 (0.00-0.05); IMMATURE GRAN PERCENT AUTO 0.4 % (0.0-0.4); LYMPHOCYTES ABSOLUTE AUTO 1.8 K/mm3 (1.0-4.8); LYMPHOCYTES PERCENT AUTO 32.8 % (24.0-44.0); MEAN CORPUSCULAR HEMOGLOBIN 30.6 pg (28.0-32.0); MEAN CORPUSCULAR VOLUME 92.7 fl (83.0-99.0); MEAN PLATELET VOLUME 9.3 fl (9.4-12.4); MONOCYTES ABSOLUTE AUTO 0.4 K/mm3 (0.0-0.8); MONOCYTES PERCENT AUTO 7.8 % (0.0-8.0); NEUTROPHILS ABSOLUTE AUTO 2.9 K/mm3 (1.8-7.7); NEUTROPHILS PERCENT AUTO 52.3 % (41.0-71.0); PLATELET COUNT,PLT 244 K/mm3 (150-400); RED BLOOD CELL COUNT 4.81 M/mm3 (4.52-5.90); WHITE BLOOD CELL COUNT,WBC 5.51 K/mm3 (3.9-11.3)
[2024-06-25 11:06] LABS: A/G RATIO 1.3 (1-2); ALBUMIN 3.9 g/dl (3.4-5.0); ANION GAP 11.3 (5-15); BILIRUBIN TOTAL 0.6 mg/dL (0.2-1.0); CALCIUM 9.2 mg/dL (8.5-10.1); EST CRCL DRUG DOSING (CG) 80.1 mL/min; MAGNESIUM 1.9 mg/dL (1.8-2.4); POTASSIUM,K 4.3 mEq/L (3.5-5.1)
[2024-06-25 12:22] VITALS: BP 149/91; PULSE 84
== END 2024-06-25 12:21 | disposition home or self-care (01) ==
LOC: JD.ED 10:06
DX: R07.89 Other chest pain (principal); E66.9 Obesity, unspecified; E78.00 Pure hypercholesterolemia, unspecified; I25.2 Old myocardial infarction; Z79.899 Other long term (current) drug therapy; Z79.82 Long term (current) use of aspirin; Z68.30 Body mass index [BMI] 30.0-30.9, adult
CPT/HCPCS: 36415; 71045; 80053; 83735; 84484; 85025; 93005; 99285; A9270; 93010; 99283